=== PATIENT | male | born 1960 | race Caucasian/White ===

== ENCOUNTER 2021-08-03 07:34 | Day surgery (SDC) | payer BC ==
[2021-08-03] MEDS ORDERED: LIDOCAINE HCL 2% 100 MG/5 ML IJ ONE (07:35)
[2021-08-03] MEDS ORDERED: Depo-Medrol 40 MG/ML IM ONE (07:35)
[2021-08-03] MEDS ORDERED: DIPRIVAN 200 MG/20 ML IV ONE (08:55)
[2021-08-03] MEDS ORDERED: Lactated Ringers 1,000 ML IV ONE (09:18)
--- NOTE | 2021-08-03 10:34 | XRAY ---
Indication: Bilateral L4-S1 MBB. Intraoperative fluoroscopy provided for 13 seconds. Single digital spot image submitted for interpretation demonstrate posterior needle tips projecting over the expected left and right L4-S1 nerve roots. Correlate with intraoperative findings/report.
--- NOTE | 2021-08-03 10:38 | XRAY ---
13 seconds fluoroscopy time in surgery for bilateral L4-S1 MBB.
== END 2021-08-03 09:20 | disposition home or self-care (01) ==
LOC: SDC-PAIN 07:34
PROVIDERS: ATTEND Psychiatry & Neurology Pain Medicine
DX: M47.816 Spondylosis without myelopathy or radiculopathy, lumbar region (principal); I10 Essential (primary) hypertension; Z79.899 Other long term (current) drug therapy
CPT/HCPCS: 64493; 64494; 72020; 77002; 82947; J1030; J2704

== ENCOUNTER 2021-10-19 08:15 | Day surgery (SDC) | payer BC ==
[2021-10-19] MEDS ORDERED: BUPIVACAINE 0.5% VIAL IJ ONE (08:16)
[2021-10-19] MEDS ORDERED: Depo-Medrol 40 MG/ML IM ONE (08:16)
[2021-10-19] MEDS ORDERED: DIPRIVAN 200 MG/20 ML IV ONE (10:59)
--- NOTE | 2021-10-19 12:17 | XRAY ---
Indication: Bilateral L4-S1 MBB. Intraoperative fluoroscopy provided for 17 seconds. Single digital spot image submitted for interpretation demonstrates posterior needle tips projecting over the expected left and right L4-S1 nerve roots. Correlate with intraoperative findings/report.
--- NOTE | 2021-10-19 12:29 | XRAY ---
17 seconds fluoroscopy time in surgery for bilateral L4-S1 MBB.
[2021-10-19] MEDS ORDERED: Lactated Ringers 1,000 ML IV ONE (12:44)
== END 2021-10-19 11:25 | disposition home or self-care (01) ==
LOC: SDC-PAIN 08:15
PROVIDERS: ATTEND Psychiatry & Neurology Pain Medicine
DX: M47.816 Spondylosis without myelopathy or radiculopathy, lumbar region (principal); E11.9 Type 2 diabetes mellitus without complications; I10 Essential (primary) hypertension; Z79.899 Other long term (current) drug therapy
CPT/HCPCS: 64493; 64494; 72020; 77002; 82947; J1030; J2704

== ENCOUNTER 2024-09-20 12:49 | Emergency (ER) | payer MEDICARE ==
[2024-09-20 13:01] VITALS: TEMP 97.5
--- NOTE | 2024-09-20 13:26 | ERPHSYRPT ---
- History of Present Illness Time Seen by Provider: 09/20/24 12:57 Source: patient Exam Limitations: no limitations Patient Subjective Stated Complaint: pt here for sudden onset dizziness today, states he also became nauseated, with some abd pain. pt started ozempic 2 days ago, bs 146. Triage Nursing Assessment: pt alert, arrived per wc, resp easy, skin slightly clammy, pink, chest clear, moves all ext well, no edema ntoed Physician History: 63-year-old male with history of hypertension, diabetes mellitus, started on Ozempic 2 days ago presented in the ER with sudden onset lightheadedness, generalized weakness fatigue tiredness and feeling as if he is going to pass out. Reports some nausea but no vomiting. He denies any chest pain palpitations or shortness of breath. No numbness tingling or focal weakness. Denies any known sick contact. Allergies/Adverse Reactions: adhesive Adverse Reaction (Mild, Verified 09/20/24 12:51) red rash Home Medications: Mu-Vits-Min Th/Lycopene/Lutein [Centrum Silver Tablet] 1 mg PO DAILY 07/02/13 [History] Naproxen 500 mg [Naprosyn 500 MG] 500 mg PO DAILY 07/02/13 [History] Vilazodone Hydrochloride [Viibryd] 40 mg PO DAILY 07/02/13 [History] Zolpidem Tartrate [Ambien] 10 mg PO DAILY 02/23/14 [History] Hx Influenza Vaccination/Date Given: No Hx Pneumococcal Vaccination/Date Given: No Immunizations Up to Date: Yes Travel Risk - International Travel Have you traveled outside of the country in past 3 weeks: No - Emerging Infectious Disease Are you exhibiting symptoms associated with any current EIDs: No - Review of Systems Constitutional: Fatigue, Weakness Eyes: No Symptoms Ears, Nose, & Throat: No Symptoms Respiratory: No Symptoms Cardiac: No Symptoms Abdominal/Gastrointestinal: Nausea Genitourinary Symptoms: No Symptoms Musculoskeletal: No Symptoms Neurological: Dizziness Psychological: No Symptoms Endocrine: No Symptoms Hematologic/Lymphatic: No Symptoms - Past Medical History Pertinent Past Medical History: Yes Neurological History: No Pertinent History ENT History: No Pertinent History Cardiac History: No Pertinent History, Hypertension Respiratory History: No Pertinent History Endocrine Medical History: Diabetes Type II Musculoskeletal History: Arthritis GI Medical History: Hernia History: No Pertinent History Psycho-Social History: Bipolar Male Reproductive Disorders: No Pertinent History - Past Surgical History Past Surgical History: Yes Neuro Surgical History: No Pertinent History Cardiac: No Pertinent History Respiratory: No Pertinent History Gastrointestinal: Hernia Repair Genitourinary: No Pertinent History Musculoskeletal: Orthopedic Surgery Male Surgical History: No Pertinent History Other Surgical History: right leg surgery with sandy placed Significant Family History: heart disease - Social History Smoking Status: Never smoker Exposure to second hand smoke: Yes Drug Use: none - Social Determinants of Health Will the patient participate in the screening: Declined to provide - Nursing Vital Signs Nursing Vital Signs: Initial Vital Signs Blood Pressure 104/63 09/20/24 12:55 O2 Sat by Pulse Oximetry 92 L 09/20/24 12:55 Pain Scale Pain Intensity 5 - Physical Exam General Appearance: no apparent distress Eye Exam: PERRL/EOMI Ears, Nose, Throat Exam: normal ENT inspection, TMs normal, pharynx normal, moist mucous membranes Neck Exam: normal inspection, non-tender, supple, full range of motion Respiratory Exam: normal breath sounds, lungs clear Cardiovascular Exam: regular rate/rhythm, normal heart sounds Gastrointestinal/Abdomen Exam: soft, normal bowel sounds, No tenderness Back Exam: normal inspection Extremity Exam: normal inspection, normal range of motion, pelvis stable Neurologic Exam: oriented x 3, cooperative, electrician office II-XII nml as tested, normal mood/affect, nml cerebellar function, nml station & gait, sensation nml, No motor deficits Skin Exam: normal color SpO2 Interpretation: normal SpO2: 94 O2 Delivery: Room Air - Course EKG Interpreted by Me: RATE ([id number]), Sinus Rhythm, NORMAL AXIS, NORMAL INTERVALS, Non-specific ST Changes Ordered Tests: Active Orders 24 hr Category Date Time Status EKG-ER Only STAT Care 09/20/24 13:20 Completed IV Insertion STAT Care 09/20/24 13:20 Completed NPO (ED) STAT Care 09/20/24 13:20 Completed Orthostatic Vital Signs STAT Care 09/20/24 13:20 Completed CHEST 1 VIEW (PORTABLE) Stat Exams 09/20/24 13:20 Completed CBC W DIFF Stat Lab 09/20/24 13:30 Completed CMP Stat Lab 09/20/24 13:52 Completed LIPASE Stat Lab 09/20/24 13:30 Completed Lactic Acid Stat Lab 09/20/24 13:39 Completed TROPONIN Q4H Lab 09/20/24 13:30 Completed UA W/RFX UR CULTURE Stat Lab 09/20/24 14:38 Completed Medication Summary Discontinued Medications Generic Name Dose Route Start Last Admin Trade Name Martin PRN Reason Stop Dose Admin Sodium Chloride 1,000 mls @ 999 mls/hr 09/20/24 13:20 09/20/24 14:49 Sodium Chloride 0.9% 1000 Ml IV 09/20/24 14:20 Infused .Q1H1M STA Infusion Sodium Chloride Confirm 09/20/24 13:36 Sodium Chloride 0.9% 1000 Ml Administered 09/20/24 13:37 Dose 1,000 mls @ ud .ROUTE .STK-MED ONE Ondansetron HCl 4 mg 09/20/24 13:20 09/20/24 13:39 Ondansetron Hcl 4 Mg/2 Ml Vial IV 09/20/24 13:21 4 mg STAT ONE Administration Ondansetron HCl Confirm 09/20/24 13:36 Ondansetron Hcl 4 Mg/2 Ml Vial Administered 09/20/24 13:37 Dose 4 mg .ROUTE .STK-MED ONE Lab/Rad Data: Laboratory Result Diagrams 09/20/24 13:30 09/20/24 13:52 Laboratory Results 09/20/24 09/20/24 09/20/24 Range/Units 14:38 13:52 13:39 WBC (4.23-9.07) x10^3/uL RBC (4.63-6.08) x10^6/uL Hgb (13.7-17.5) g/dL Hct (40.1-51.0) % MCV (79.0-92.2) fL MCH (25.7-32.2) pg MCHC (32.3-36.5) g/dL RDW (11.6-14.4) % Plt Count (163-337) x10^3/uL MPV (9.4-12.4) fL Gran % (34.0-67.9) % Immature Gran % (Auto) (0.001-0.429) % Nucleat RBC Rel Count (0.00-0.2) % Eos # (Auto) (0.04-0.54) x10^3/uL Immature Gran # (Auto) (0.001-0.031) x10^3u/L Absolute Lymphs (auto) (1.32-3.57) x10^3/uL Absolute Monos (auto) (0.30-0.82) x10^3/uL Absolute Nucleated RBC (0.00-0.012) x10^3u/L Lymphocytes % (21.8-53.1) % Monocytes % (5.3-12.2) % Eosinophils % (0.8-7.0) % Basophils % (0.2-1.2) % Absolute Granulocytes (1.78-5.38) x10^3/uL Basophils # (0.01-0.08) x10^3/uL Sodium 134 L (135-145) mmol/L Potassium 4.7 (3.5-5.1) mmol/L Chloride 103 (98-107) mmol/L Carbon Dioxide 21 L (22-30) mmol/L Anion Gap 15.0 (5-15) MEQ/L BUN 20 (9-20) mg/dL Creatinine 0.97 (0.66-1.25) mg/dL Estimated GFR 87.7 ML/MIN Glucose 196 H (74-106) mg/dL Lactic Acid 1.4 (0.4-2.0) Calcium 9.2 (8.4-10.2) mg/dL Total Bilirubin 0.60 (0.2-1.3) mg/dL AST 40 (17-59) U/L ALT 49 (0-50) U/L Alkaline Phosphatase 91 (38-126) U/L Troponin I (0.000-0.033) ng/mL Serum Total Protein 7.0 (6.3-8.2) g/dL Albumin 4.4 (3.5-5.0) g/dL Lipase (23-300) U/L Urine Color Yellow (Yellow) Urine Appearance Clear (Clear) Urine pH 6.0 (4.6-8.0) Ur Specific Lyle 1.025 (1.005-1.030) Urine Protein Negative (Negative) Urine Glucose (UA) >=1000 A (Negative) mg/dL Urine Ketones Negative (Negative) Urine Blood Negative (Negative) Urine Nitrite Negative (Negative) Urine Bilirubin Negative (Negative) Urine Urobilinogen 0.2 (0.2) mg/dL Ur Leukocyte Esterase Negative (Negative) U Hyaline Cast (Auto) NONE SEEN (0-2) /LPF Urine Microscopic RBC 0-2 (0-5) /HPF Urine Microscopic WBC 0-2 (0-5) /HPF Ur Epithelial Cells None Seen (None Seen) /HPF Urine Bacteria None Seen (None Seen) /HPF Urine Culture Reflexed NO (NO) 09/20/24 09/20/24 09/20/24 Range/Units 13:30 13:30 13:30 WBC 5.8 (4.23-9.07) x10^3/uL RBC 4.60 L (4.63-6.08) x10^6/uL Hgb 15.1 (13.7-17.5) g/dL Hct 43.4 (40.1-51.0) % MCV 94.3 H (79.0-92.2) fL MCH 32.8 H (25.7-32.2) pg MCHC 34.8 (32.3-36.5) g/dL RDW 11.7 (11.6-14.4) % Plt Count 187 (163-337) x10^3/uL MPV 10.7 (9.4-12.4) fL Gran % 68.2 H (34.0-67.9) % Immature Gran % (Auto) 1.0 H (0.001-0.429) % Nucleat RBC Rel Count 0.0 (0.00-0.2) % Eos # (Auto) 0.17 (0.04-0.54) x10^3/uL Immature Gran # (Auto) 0.06 H (0.001-0.031) x10^3u/L Absolute Lymphs (auto) 1.03 L (1.32-3.57) x10^3/uL Absolute Monos (auto) 0.52 (0.30-0.82) x10^3/uL Absolute Nucleated RBC 0.00 (0.00-0.012) x10^3u/L Lymphocytes % 17.9 L (21.8-53.1) % Monocytes % 9.0 (5.3-12.2) % Eosinophils % 3.0 (0.8-7.0) % Basophils % 0.9 (0.2-1.2) % Absolute Granulocytes 3.93 (1.78-5.38) x10^3/uL Basophils # 0.05 (0.01-0.08) x10^3/uL Sodium (135-145) mmol/L Potassium (3.5-5.1) mmol/L Chloride (98-107) mmol/L Carbon Dioxide (22-30) mmol/L Anion Gap (5-15) MEQ/L BUN (9-20) mg/dL Creatinine (0.66-1.25) mg/dL Estimated GFR ML/MIN Glucose (74-106) mg/dL Lactic Acid (0.4-2.0) Calcium (8.4-10.2) mg/dL Total Bilirubin (0.2-1.3) mg/dL AST (17-59) U/L ALT (0-50) U/L Alkaline Phosphatase (38-126) U/L Troponin I < 0.012 (0.000-0.033) ng/mL Serum Total Protein (6.3-8.2) g/dL Albumin (3.5-5.0) g/dL Lipase 110 (23-300) U/L Urine Color (Yellow) Urine Appearance (Clear) Urine pH (4.6-8.0) Ur Specific Lyle (1.005-1.030) Urine Protein (Negative) Urine Glucose (UA) (Negative) mg/dL Urine Ketones (Negative) Urine Blood (Negative) Urine Nitrite (Negative) Urine Bilirubin (Negative) Urine Urobilinogen (0.2) mg/dL Ur Leukocyte Esterase (Negative) U Hyaline Cast (Auto) (0-2) /LPF Urine Microscopic RBC (0-5) /HPF Urine Microscopic WBC (0-5) /HPF Ur Epithelial Cells (None Seen) /HPF Urine Bacteria (None Seen) /HPF Urine Culture Reflexed (NO) - Progress Progress: improved, re-examined Progress Note: 09/20/24 14:57 63-year-old with history of hypertension, diabetes mellitus is evaluated in the ER for nausea, feeling lightheaded. Patient was started on Ozempic 2 days ago. Negative neuroexam throughout her stay in the ER. EKG is sinus rhythm with no acute ischemic changes, patient has no chest pain or palpitations. Chest x-ray negative for any acute cardiopulmonary findings. Normal white count, chemistries with some element of dehydration and patient is given fluids. No nausea after Zofran. no abdominal tenderness/Peritoneal signs on repeated eval. Patient is feeling much improved. I have offered COVID testing which he declined. I believe patient's symptoms are secondary to Ozempic use with some nausea and dry heaving. Do not think it is cardiac or neuro origin, recommended increase hydration, Zof ran as needed and outpatient follow-up. Discussed signs symptoms of worsening needing return to ER which he seems understanding. Counseled pt/family regarding: lab results, diagnosis, need for follow-up, rad results Medical Desision Making - Independent Historian Additional History obtained from: Spouse - Diagnostic Testing Diagnostic test were ordered, analyzed, and reviewed by me: Yes Radiological Interpretation: Interpreted by me, Reviewed by me - Risk of complications The pt has a mod risk of morbidity or mortality based on: Need for prescription drug management - Departure Departure Disposition: Home Clinical Impression: Nausea, Lightheadedness Condition: Stable Critical Care Time: No Referrals: [facility]OSPITAL,'[facility] [Primary Care Provider] - Follow up with PCP 1 day Instructions: Fainting in adults - ED discharge instructions Additional Instructions: Drink plenty of fluids. Take Tylenol/Zofran as needed. Follow-up with primary care for reevaluation. Return to ER for any worsening. Prescriptions: Ondansetron ODT 4 MG [Zofran Odt 4 mg] 1 ea PO QIDPRN PRN #7 tablet PRN Reason: n/v
[2024-09-20] MEDS ORDERED: Zofran 4 MG/2 ML VIAL ONE (13:36)
[2024-09-20] MEDS ORDERED: Sodium Chloride 0.9% 1000 ML 1,000 ML ONE (13:36)
[2024-09-20 13:38] LABS: Absolute Neutrophil Ct (ANC) 3.93 x10^3/uL (1.78-5.38); BASOPHIL % 0.9 % (0.2-1.2); Basophil (Absolute #) 0.05 x10^3/uL (0.01-0.08); Eosinophil (Absolute #) 0.17 x10^3/uL (0.04-0.54); Hematocrit 43.4 % (40.1-51.0); Hemoglobin 15.1 g/dL (13.7-17.5); IMMATURE GRAN # 0.06 x10^3u/L (0.001-0.031); Lymphocyte (Absolute #) 1.03 x10^3/uL (1.32-3.57); Lymphocytes % 17.9 % (21.8-53.1); Mean Cell Volume 94.3 fL (79.0-92.2); Mean Corpuscular Hemoglobin 32.8 pg (25.7-32.2); Mean Corpuscular Hgb Concent. 34.8 g/dL (32.3-36.5); Mean Platelet Volume 10.7 fL (9.4-12.4); Monocyte (Absolute #) 0.52 x10^3/uL (0.30-0.82); Neutrophil % 68.2 % (34.0-67.9); Platelet Count 187 x10^3/uL (163-337); Red Cell Distribution Width 11.7 % (11.6-14.4); White Blood Count 5.8 x10^3/uL (4.23-9.07)
[2024-09-20] MEDS: Sodium Chloride 0.9% 1000 ML 1,000 ML IV STA (13:38)
[2024-09-20] MEDS: Zofran 4 MG/2 ML VIAL IV ONE (13:39)
[2024-09-20 14:13] LABS: ALBUMIN 4.4 g/dL (3.5-5.0); BILIRUBIN,TOTAL 0.6 mg/dL (0.2-1.3); Calcium 9.2 mg/dL (8.4-10.2); Creatinine 1 0.97 mg/dL (0.66-1.25); EST GLOMERULAR FILTRATION RATE 87.7 ML/MIN; Potassium 4.7 mmol/L (3.5-5.1)
[2024-09-20 14:48] LABS: Appearance Clear (Clear); Bacteria None Seen /HPF (None Seen); Bilirubin Negative (Negative); Blood Negative (Negative); Epithelial Cells None Seen /HPF (None Seen); Glucose, Urine >=1000 mg/dL (Negative); Hyaline Casts NONE SEEN /LPF (0-2); Ketones Negative (Negative); Leukocyte Esterase Negative (Negative); Nitrite Negative (Negative); Protein,Urine Dip Negative (Negative); RBC 0-2 /HPF (0-5); Specific Gravity 1.025 (1.005-1.030); Urobilinogen 0.2 mg/dL (0.2); WBC 0-2 /HPF (0-5)
[2024-09-20 15:37] VITALS: BP 103/77; PULSE 77; RESP 18
--- NOTE | 2024-09-20 23:39 | XRAY ---
Indication: Lightheaded. Comparison: May 03, 2011 Portable chest remains inflated and clear. Heart and mediastinal structures within normal limits. Bony thorax intact. Impression: Continued nonacute chest.
[2024-09-21 00:45] VITALS: O2SAT 94
== END 2024-09-20 15:40 | disposition home or self-care (01) ==
LOC: ED 12:49
DX: R11.0 Nausea (principal); R42 Dizziness and giddiness; R53.1 Weakness; I10 Essential (primary) hypertension; E11.9 Type 2 diabetes mellitus without complications; Z79.85 Long-term (current) use of injectable non-insulin antidiabetic drugs; Z79.899 Other long term (current) drug therapy
CPT/HCPCS: 36415; 71045; 80053; 81001; 83605; 83690; 84484; 85025; 93005; 96361; 96374; 99284; 99285; J2405

== ENCOUNTER 2024-12-18 07:15 | Day surgery (SDC) | payer OTHER ==
--- NOTE | 2024-12-17 08:25 | HP ---
HISTORY AND PHYSICAL HISTORY OF PRESENT ILLNESS: The patient is a 63-year-old male who presents with screening colonoscopy. Last colonoscopy was 10 years ago. There were no polyps. He did have a history of a peptic ulcer disease. He does take an antacid occasionally, and he would like to have this checked out. He has had an occasional flare-up. PAST MEDICAL HISTORY: Hypertension, diabetes, bipolar. HOME MEDICATIONS: Ambien, Ozempic, NovoLog, metformin, Lotensin, amlodipine, paroxetine. ALLERGIES: Amitriptyline. PAST SURGICAL HISTORY: Umbilical hernia, skin lesion excision. SOCIAL HISTORY: Alcohol daily. FAMILY HISTORY: Breast cancer. REVIEW OF SYSTEMS: CONSTITUTIONAL: Denies fever or chills. CHEST: Denies shortness of breath. CARDIOVASCULAR: Denies chest pain. ABDOMEN: Denies abdominal pain. PHYSICAL EXAMINATION: GENERAL: No acute distress. CARDIOVASCULAR: Regular rate and rhythm. RESPIRATORY: Nonlabored. No shortness of breath. ABDOMEN: Soft. IMPRESSION: History of peptic ulcer disease, screening. PLAN: EGD, colonoscopy with Dr. aSmir Salinas. This report was dictated for Dr. Salinas by Jael Elena NP.
[2024-12-18] MEDS ORDERED: Lactated Ringers 1,000 ML IV ONE (07:39)
[2024-12-18] MEDS: Lactated Ringers 1,000 ML IV SCH (07:50)
[2024-12-18] MEDS: Pepcid 20 MG VIAL IV ONE (08:13)
[2024-12-18] MEDS: Reglan 10 MG/2 ML IV ONE (08:13)
[2024-12-18] MEDS ORDERED: propofoL IV ONE ×2 (11:46→12:12)
[2024-12-18] MEDS ORDERED: Versed 2 MG/2 ML Injection ONE (11:47)
[2024-12-18 12:57] VITALS: RESP 16; TEMP 97.7
[2024-12-18 13:07] VITALS: BP 167/99; PULSE 64; O2SAT 98
--- NOTE | 2024-12-21 23:05 | OP ---
SURGERY DATE/TIME: 12/18/2024 [id number] PREOPERATIVE DIAGNOSIS: Epigastric pain, 10 year screening. POSTOPERATIVE DIAGNOSES: 1) Normal colon. He does need follow up in 10 years. 2) Esophagogastroduodenoscopy demonstrating mild hemorrhagic gastritis. A cold biopsy was obtained. PROCEDURE: EGD, Colonoscopy. SURGEON: Samir Salinas M.D. ANESTHESIA: General. COMPLICATIONS: None. PATIENT CONDITION: Stable. FINDINGS: Moderate to severe gastritis with erythema, friability and some adherent blood. Colonoscopy with diverticulitis, 2 small polyps. Prep fair. DESCRIPTION OF PROCEDURE: Patient taken to endoscopy. Pharyngoesophageal junction cannulated. Esophagus normal to EG junction. No esophagitis. No reflux. He did have 1-inch hiatal hernia. Fundus and body were normal. Antrum, there was a mild hemorrhagic gastritis, loss prevention representative cold biopsy. Pylorus normal. Duodenal bulb normal. Second portion normal. Scope withdrawn, looped upon itself. A 1-inch hiatal hernia. Patient tolerated the procedure satisfactory. Anal digital examination satisfactory. Scope was advanced up to the cecum. Base of cecum, ileocecal valve, appendiceal orifice were normal. Ascending, hepatic, transverse, splenic, descending, sigmoid, rectum normal. Excellent prep. Ten year followup. Findings discussed with the in the waiting room.
== END 2024-12-18 13:15 | disposition home or self-care (01) ==
LOC: SDC 07:15
PROVIDERS: ATTEND Surgery
DX: Z12.11 Encounter for screening for malignant neoplasm of colon (principal); E11.9 Type 2 diabetes mellitus without complications; Z80.3 Family history of malignant neoplasm of breast; R10.13 Epigastric pain; K29.70 Gastritis, unspecified, without bleeding; K44.9 Diaphragmatic hernia without obstruction or gangrene
CPT/HCPCS: 82947; J2250; J2704